=== PATIENT | male | born 1975 | race Hispanic/Latino ===

== ENCOUNTER 2018-09-21 18:06 | Emergency (ER) | payer BC ==
[2018-09-21] MEDS ORDERED: EPINEPHrine 1 MG/ML AMP ONE (18:13)
[2018-09-21] MEDS ORDERED: predniSONE 20 MG TAB ONE (18:20)
[2018-09-21] MEDS ORDERED: methylPREDNISolone Sod Succ/PF 125 MG/2 ML VIAL ONE (18:20)
[2018-09-21] MEDS ORDERED: Famotidine/PF 20 mg/2ml Vial ONE (18:20)
== END 2018-09-21 19:54 | disposition home or self-care (01) ==
LOC: SCSER 18:06
DX: T78.40XA Allergy, unspecified, initial encounter (principal)
CPT/HCPCS: 96372; 96374; 96375; J0171; J2930; S0028